=== PATIENT | female | born 1960 | race Hispanic/Latino ===

== ENCOUNTER 2019-12-07 06:51 | Outpatient (CLI) | payer BC ==
--- NOTE | 2019-12-07 07:56 | ULT ---
ABDOMINAL ULTRASOUND HISTORY: Abdominal pain. FINDINGS: Liver: Mild increase in echogenicity suggesting fatty infiltration. Gallbladder: Not visualized compatible with patient's history of prior cholecystectomy. Common duct: Common duct is normal in caliber measuring 0.5 cm in diameter. Pancreas: The limited visualized pancreas demonstrates a normal sonographic appearance. IVC: Limited visualized IVC has a normal sonographic appearance. Aorta: The aorta is normal in caliber. Spleen: Within normal limits. Kidneys: Kidneys demonstrate a normal sonographic appearance bilaterally with the right kidney measur ing 10.3 cm in length, and the left kidney measures 11.2 cm in length. IMPRESSION: 1. Fatty infiltration of the liver. 2. Postcholecystectomy changes.
== END 2019-12-07 06:52 | disposition home or self-care (01) ==
LOC: ULT 06:51
PROVIDERS: ATTEND Internal Medicine Gastroenterology
DX: R10.9 Unspecified abdominal pain (principal); K76.0 Fatty (change of) liver, not elsewhere classified; Z90.49 Acquired absence of other specified parts of digestive tract
CPT/HCPCS: 93975

== ENCOUNTER 2023-11-18 09:55 | Outpatient (CLI) | payer BC ==
[2023-11-18] MEDS ORDERED: GASTROGRAFIN 30 ML BOT ONE (11:14)
[2023-11-18] MEDS ORDERED: Iopamidol 370 76% 100 ML VIAL ONE (11:14)
== END 2023-11-18 09:56 | disposition home or self-care (01) ==
LOC: CT 09:55
PROVIDERS: ATTEND Physician Assistant Medical
DX: K57.92 Diverticulitis of intestine, part unspecified, without perforation or abscess without bleeding (principal); R10.32 Left lower quadrant pain; K76.0 Fatty (change of) liver, not elsewhere classified; K57.30 Diverticulosis of large intestine without perforation or abscess without bleeding
CPT/HCPCS: 74177; 82565